=== PATIENT | male | born 1945 | race Caucasian/White ===

== ENCOUNTER 2020-12-25 07:41 | Outpatient (RCR) | payer MEDICARE, SELFPAY ==
[2020-12-25] MEDS: ACETAMINOPHEN 325 MG TABLET 650 MG PO (09:41)
[2020-12-25] MEDS: FAMOTIDINE 20 MG TABLET PO (09:42)
[2020-12-25] MEDS: diphenhydrAMINE HCl CAP 25 MG CAPSULE PO (09:42)
[2020-12-25 09:56] VITALS: BP 112/68; PULSE 85; RESP 18; TEMP 37; O2SAT 97
[2020-12-25 10:52] VITALS: BP 110/61
--- NOTE | 2020-12-28 12:50 | PC.NURSE ---
Patient states he has slightly improved since his covid infusion.
== END 2020-12-25 14:26 | disposition home or self-care (01) ==
LOC: AMCINF 07:41
PROVIDERS: PCP Family Medicine; Referring Provider Family Medicine; Visit Provider Internal Medicine Hematology & Oncology
DX: Z23 Encounter for immunization (principal); U07.1 COVID-19
CPT/HCPCS: A9270; J7050; M0243; Q0243

== ENCOUNTER 2020-12-31 08:52 | Emergency (ER) | payer MEDICARE, SELFPAY ==
[2020-12-31] VITALS (13 sets, daily range): BP systolic 135–170; BP diastolic 85–119; PULSE 68–94; RESP 10–19; TEMP 36.3–36.6; O2SAT 96–99
--- NOTE | ~2020-12-31 | XR_ITS ---
EXAMINATION: XR shoulder RT min 2V DATE: 12/31/2020 09:21 INDICATION: Right shoulder dislocation. TECHNIQUE: 3 views of right shoulder were obtained. COMPARISON: Right shoulder radiographs 12/26/2018 FINDINGS: Bone alignment is normal. No fracture. There is mild osteoarthritis of glenohumeral joint a nd severe osteoarthritis of acromioclavicular joint. There are patchy airspace opacities in right mid and lower lung zones. IMPRESSION: 1. Polyarticular osteoarthritis. 2. Patchy airspace opacities in right mid and lower lung zones, consistent with pneumonia. Reviewed, dictated and finalized at location A.
--- NOTE | 2020-12-31 09:26 | PC.NURSE ---
Pt states that he woke up and stretched which caused him to dislocate his shoulder, he appeared with deformity with pale/ cold fingers, pt states that he has dislocated his right shoulder twice in the past, pt placed in sling,pt states his pain is 1/10, pt hand and fingers has warmed up and gained normal skin color, pt states his hand feels normal again, cap refill less than 3 sec, pulses normal bilaterally
--- NOTE | 2020-12-31 09:48 | ED.UPPEXIN ---
HPI - Extremity Injury (Upper) General Chief Complaint: Extremity Injury, Upper Stated Complaint: possible shoulder dislocation Time Seen by Provider: 12/31/20 09:05 Source: patient History of Present Illness HPI narrative: Patient presents with right shoulder pain. Patient reports a history of dislocations last location was over a year ago. Reports he was getting out of bed when he twisted his shoulder and felt a pop out. He noted paresthesias and cold extremities so he came to the ER for evaluation. Denies falling down or striking his head. His pain is constant, achy, worse with moving his right upper extremity, no radiation. Related Data Allergies Allergy/AdvReac Type Severity Reaction Status Date / Time No Known Allergies Allergy Unknown Unverified 12/26/18 09:55 Review of Systems Review of Systems: CONSTITUTIONAL: Denies fever, chills, or sweats. EYES: Denies visual changes, redness, or discharge. ENT: Denies rhinorrhea, congestion, sore throat, or otalgia. CARDIOVASCULAR: Denies chest pain, palpitations, or edema. RESPIRATORY: Denies cough or dyspnea. GASTROINTESTINAL: Denies abdominal pain, nausea, vomiting, or diarrhea. GENITOURINARY: Denies dysuria or hematuria. SKIN: Denies rash or itching. MUSCULOSKELETAL: Denies back pain, joint pain, or myalgia. NEUROLOGIC: Denies headache, numbness, dizziness, or weakness. PSYCHIATRIC: Denies anxiety or depression. All systems reviewed & are unremarkable except as noted in HPI and below PMFSH Family History Family History Sibling Family history of malignant neoplasm Social History Social History Smoking status: Never smoker Alcohol intake: never Spiritual care concerns: No Exam Narrative: GENERAL: Well-appearing, well-nourished, and in no acute distress. HEAD: Normocephalic, atraumatic. EYES: PERRLA and EOMI. ENT: Nares clear, no rhinorrhea or epistaxis. Mucous membranes moist. NECK: Supple. No masses. No JVD EXTREMITIES: Deformity noted to the right shoulder mouth malalignment of the humerus patient in relation to the glenoid. Right distal extremity has cap refill of approximately 5 seconds and appears pale. Sensation is intact to light touch motor function is 5 out of 5 in the right hand SKIN: Warm, dry, no rash. NEURO: No focal deficits. Alert and oriented x3. PSYCH: Normal mood and affect. Course Reevaluation(s) Reevaluation #1: Patient reports feeling much improved plain films are reassuring patient is comfortable following up as an outpatient with his orthopedic surgeon. Date: 12/31/20 Time: 09:51 Vital Signs Vital signs: Vital Signs Temperature 36.3 C L 12/31/20 09:00 Pulse Rate 76 12/31/20 09:00 Respiratory Rate 19 12/31/20 09:00 Blood Pressure 135/105 H 12/31/20 09:00 Pulse Oximetry 98 12/31/20 09:00 Temperature 36.6 C 12/31/20 10:22 Pulse Rate 71 12/31/20 10:22 Respiratory Rate 18 12/31/20 10:22 Blood Pressure 140/86 12/31/20 10:22 Pulse Oximetry 97 12/31/20 10:22 Procedures Orthopedic Joint Reduction Joint #1: Orthopedic Joint Reduction Date: 12/31/20 Orthopedic Joint Reduction Time: 09:03 Time Out Performed: No Side: right Joint Reduction Location: shoulder Analgesia: none Pre-Procedure Neuro Vascular Exam: abnormal (Pale hand with paresthesias) Local Anesthesia: none Technique used: direct manipulation Post-reduction neuro exam: intact Post-reduction vascular: intact Post Reduction X-Ray Obtained: Yes Post Reduction X-Ray Results: reduced Splint Applied: Yes (Shoulder sling) Patient Tolerated Procedure: well and no complications MDM - Extremity Injury (Upper) MDM Narrative Medical decision making narrative: H&P as above, vss, pt looks clinically well, exam with pale hand and paresthesias as well as d
== END 2020-12-31 10:32 | disposition home or self-care (01) ==
PROVIDERS: Emergency Provider Emergency Medicine; PCP Family Medicine
DX: S43.004A Unspecified dislocation of right shoulder joint, initial encounter (principal); M19.011 Primary osteoarthritis, right shoulder; R91.8 Other nonspecific abnormal finding of lung field; Z86.16 Personal history of COVID-19; X50.9XXA Other and unspecified overexertion or strenuous movements or postures, initial encounter
CPT/HCPCS: 23650; 73030; 99285

== ENCOUNTER 2021-01-12 10:20 | Outpatient (CLI) | payer MEDICARE, SELFPAY ==
--- NOTE | ~2021-01-12 | MR_ITS ---
EXAMINATION: MR shoulder RT wo con DATE: 01/12/2021 11:28 INDICATION: Right shoulder dislocation TECHNIQUE: Magnetic resonance imaging (MRI) of the right shoulder was performed without intravenous c ontrast. Sequences included axial PD-weighted FS FSE, coronal oblique PD-weighted FS FSE, coronal obl ique T2-weighted FS FSE, sagittal PD-weighted FS FSE, and sagittal T1-weighted SE. COMPARISON: None. FINDINGS: Coracoacromial arch: The acromion undersurface is curved in morphology (type II). The coracoacromial ligament is normal. M oderate acromioclavicular osteoarthritis. Rotator cuff: Mild supraspinatus and infraspinatus tendinopathy. There is a small full-thickness tear within a few millimeter of the distal insertion of the conjoined portion of the supraspinatus and infraspinatus te ndons which measures 5 mm AP and 7 mm medial to lateral. The tear extends additional 7 mm posteriorly as a partial thickness articular sided tear involving no greater than one third of the tendon thickn ess. This occurs along side the margins of the small Hill-Sachs fracture trough. The teres minor tend on is normal. There is a small partial-thickness tear along the lateral rim of the lesser tuberosity insertion of the subscapularis tendon. Split tear between the portion of the tendon attached to the l biju tuberosity and the more superficial portion of the tendon contiguous with the transverse nellie l ligament which propagates an additional 8 mm medially. Portion of the long head biceps tendon is cotter bluxed into the split tear defect. No asymmetric atrophy of the rotator cuff musculature. There is mi ld increased fluid signal in the teres minor muscle and posterior aspect of the deltoid muscle which could be related to either muscle strain in the setting of trauma, acute denervation change or nonspe cific myositis. Biceps tendon, glenoid labrum and glenohumeral cartilage: Mild tendinopathy of the long head biceps tendon and longitudinal split tear beginning at the level o f the intertubercular groove and extending to the intra-articular portion of the tendon. The split te ar runs along the rim of the intertubercular groove with portions of the tendon remaining in the groo ve and a similar diameter portion of the tendon subluxed into the subscapularis tendon tear defect. T here is a linear tear beginning at the 3:00 position of the glenoid labrum and extending inferiorly a nd posteriorly to the 7:00 position. There is however no evident separation of the labrum from the gl enoid. There is an additional small tear at the base of the 11:00 position of the posterior superior glenoid labrum. There is mild chondral swelling along the inferior glenoid. Small region of chondral ulceration along the inferomedial aspect of the humeral head without degenerative subchondral changes . Fluid: Physiologic amount of fluid in the glenohumeral joint and biceps tendon sheath. No loose osteochondra l bodies. Small amount of fluid in the subacromial/subdeltoid bursa likely decompressing from the allie nt space through the full-thickness rotator cuff tear defect. Bones: There is mild marrow edema underlying a shallow Hill-Sachs fracture trough at the posterosuperior gle noid less than would be expected for a fracture occurring 10 days prior suspect this represents a rec urrent contusion superimposed over a more chronic fracture. Otherwise normal marrow signal. No other fractures or pathologic marrow replacing process. IMPRESSION: 1. Shallow Hill-Sachs fracture trough along the posterior superolateral aspect of the right humeral h ead with relatively mild underlying marrow edema suggesting a subacute contusion related to a recurre nt dislocation superimposed over a likely more chronic fracture. Correlate for clinical history of pr evious chronic dislocations. 2. Small full-thickness and mild articular sided tears at the conjoined supras
== END 2021-01-12 10:21 | disposition home or self-care (01) ==
PROVIDERS: PCP Family Medicine; Visit Provider Orthopaedic Surgery
DX: S43.004A Unspecified dislocation of right shoulder joint, initial encounter (principal); S42.391A Other fracture of shaft of right humerus, initial encounter for closed fracture; M24.811 Other specific joint derangements of right shoulder, not elsewhere classified
CPT/HCPCS: 73221

== ENCOUNTER 2023-02-17 00:32 | Day surgery (SDC) | payer MEDICARE, SELFPAY ==
[2023-02-16 15:38] VITALS: BMI 28.4
[2023-02-17] VITALS (18 sets, daily range): BP systolic 84–120; BP diastolic 54–85; PULSE 48–69; RESP 12–18; TEMP 36.8; O2SAT 96–100; BMI 28.8
--- NOTE | 2023-02-17 07:30 | ECG_ITS ---
Measurements Intervals [place] Rate: 46 P: 3 NE: 219 QRS: 44 QRSD: 86 T: 48 QT: 431 QTc: 379 Interpretive Statements SINUS BRADYCARDIA WITH FIRST DEGREE AV BLOCK WITH OCCASIONAL SUPRAVENTRICULAR PREMATURE COMPLEXES ABNORMAL ECG COMPARED TO ECG 02/17/2023 07:39:37 SINUS RHYTHM REPLACES ATRIAL FLUTTER Electronically Signed On 02-17-2023 10:45:12 DANCE INSTRUCTOR by Quoc Hernandez M.D.
[2023-02-17 07:59] LABS: Hemoglobin 15.2 g/dL (14.0-18.0); Mean Corpuscular HGB Conc 32.3 g/dl (32-36); Mean Corpuscular Hemoglobin 29.7 pg (26-34); Mean Platelet Volume 9.1 fl (7.4-10.4); Platelet Count Result 264 k/mm3 (150-375); Red Blood Count 5.11 M/mm3 (4.6-6.20); Red Cell Distribution Width 13.5 % (11.5-14.5)
[2023-02-17] MEDS: SODIUM CHLORIDE 0.9% IV 1,000 ML 30 ML IV CONT (08:10)
[2023-02-17 08:13] LABS: Magnesium 2.1 mg/dL (1.6-2.3)
[2023-02-17 08:13] LABS: Alanine Aminotransferase 19 U/L (6-50); Albumin Level 4.2 g/dL (3.5-5.1); Alkaline Phosphatase 68 U/L (38-126); Anion Gap 6 mmol/L (8-16); Aspartate Amino Transferase 21 U/L (17-59); Bilirubin,Total 1.5 mg/dL (0.2-1.3); Blood Urea Nitrogen 25 mg/dL (9-20); Calcium 9.7 mg/dL (8.4-10.2); Carbon Dioxide 22 mmol/L (22-30); Chloride 110 mmol/L (98-107); Estimated CRCL calculation 46 ml/min; Estimated Glomerular Filt Rate 59; Glucose 121 mg/dL (65-110); Potassium 4.5 mmol/L (3.4-5.0); Sodium 138 mmol/L (137-145)
--- NOTE | 2023-02-17 08:22 | WPDMODSED ---
Moderate Sedation Note-Pt Data Patient Data Diagnosis: Atrial flutter Present Complaint: No complaints this morning Procedure to be performed/Plan: DC cardioversion Allergies Allergy/AdvReac Type Severity Reaction Status Date / Time No Known Allergies Allergy Unknown Verified 02/17/23 07:40 Home Medications Medication Instructions Recorded Confirmed Type glucosamine-chondroitin 500 mg-400 1 tablet PO BID 04/28/22 02/16/23 History mg tablet [id number] 250 mg-dha 90 1 cap PO DAILY 04/28/22 02/16/23 History mg-epa 160 [id number]-[id number] capsule (Ocuvite Adult 50 Plus) atorvastatin 40 mg tablet 40 mg PO DAILY #90 tabs 11/03/22 02/17/23 Rx lisinopril 20 mg tablet 20 mg PO DAILY #90 tabs 11/03/22 02/16/23 Rx sildenafil 100 mg tablet 100 mg PO DAILY PRN sexual 11/03/22 02/16/23 Rx activity #18 tabs apixaban 5 mg tablet (Eliquis) 5 mg PO BID 02/16/23 02/17/23 History metoprolol succinate 100 mg 100 mg PO DAILY 02/16/23 02/16/23 History tablet,extended release 24 hr Current Medications: Active Medications Sodium Chloride (Normal Saline Iv) 1,000 mls @ 30 mls/hr IV CONT .Q24H FAHEEM Sedation/Anesthesia: No previous sedation/anesthesia problems (including family history). [facility] Past Medical History Medical History (Updated 11/03/22 @ 13:43 by German Carrero MD) Chronic kidney disease, stage 2 (mild) Complete tear of right rotator cuff Elevated prostate specific antigen [PSA] Hyperlipidemia, unspecified Hypertensive chronic kidney disease with stage 1 through stage 4 chronic kidney disease, or unspecified chronic kidney disease Left shoulder tendonitis Male erectile dysfunction, unspecified Prediabetes Surgical History Surgical History History of eye surgery (~11/2020) Repair Detached Retina History of Mohs micrographic surgery for skin cancer 08/2016 Family History Family History (Updated 10/27/22 @ 13:41 by JEANNETTE Farias) Sibling Family history of malignant neoplasm Father Acute myocardial infarction Mother Hypertension Heart disease Grandparent Acute myocardial infarction Social History Social History Smoking status: Never smoker Second hand tobacco smoke exposure: No Alcohol intake: never Substance use: never Substance use type: does not use Lack of Transportation: No Lack of Food: Never True Current Housing: I Have Housing Concerned About Future Housing: No Difficulty Paying Gas/Electric Bills: No Difficulty Paying for Meds: No Currently Unemployed: YES Difficulty w/ Childcare or Family Care: No Living arrangements: with family Occupation/Education: retired Gender identity (if verbalized by the patient): Male Sexual Orientation (if Verbalized by the Patient): Straight or Heterosexual Spiritual care concerns: No Mod Sed Physical Exam Physical Exam Pre Procedural Exam: Normal: Appearance, Neck, Throat, Airway, Lungs, Heart Size, Neuro Exam and Extremities and Variation: Heart Rate and Heart Rhythm (Irregularly irregular) Hours since solid foods: 12 Hours since liquid intake: 12 Mallampati Classification: class II Internal Medicine - PN: Obj Da Vital Signs Vital Signs: Vital Signs - 24 hr 02/17/23 08:00 Temperature 36.8 C Pulse Rate 69 Respiratory Rate 18 Blood Pressure 120/85 Pulse Oximetry 97 Oxygen Delivery Room Air Meds/Results Medications: Active Medications Generic Name Dose Route Start Last Admin Trade Name Freq PRN Reason Stop Dose Admin Sodium Chloride 1,000 mls @ 30 mls/hr 02/17/23 07:30 Normal Saline Iv IV CONT .Q24H FAHEEM Labs 02/17/23 07:44 02/17/23 07:44 Labs: Laboratory Results - last 24 hr 02/17/23 02/17/23 07:44 07:50 WBC 6.0 RBC 5.11 Hgb 15.2 Hct 47.0 MCV 92.0 MCH 29
--- NOTE | 2023-02-17 08:23 | PM.IMHP ---
H&P: HPI History of Present Illness Date/Time: 02/17/23 08:23 Chief Complaint: No complaint Narrative: This is a 77-year-old man who is admitted to the hospital as an outpatient today for attempt at electrical cardioversion of atrial flutter. He has been followed in my office since 2018 when he was referred by the PCP because of the clinical diagnosis of atrial fibrillation. At the time of his initial referral he appeared to have a multifocal atrial rhythm/not main atrial fibrillation. I simply saw him in the office periodically for follow-up and he was doing well. His evaluation with ECHO showed mild to moderate mitral valve regurgitation so we recommended see him periodically. During a routinely scheduled office appointment in January of 2023 he was found to be in atrial flutter with rapid ventricular response. Despite the rapid ventricular response he was minimally if at all symptomatic. He was started on metoprolol and apixaban. The metoprolol provided very good rate control and he essentially became asymptomatic. Following conversation regarding rate control versus rhythm control strategy he expressed a preference for an attempt at restoring sinus rhythm. He is admitted today for that attempt. Review of Systems Constitutional: Constitutional: Reports no additional constitutional complaints Eyes: Eyes: Reports no additional eye complaints ENT: Reports system reviewed and no additional complaints, except as documented Cardiovascular: Cardiovascular: Reports no additional cardiovascular complaints Respiratory: Respiratory: Reports no additional respiratory complaints Gastrointestinal: Gastrointestinal: Reports no additional gastrointestinal complaints Musculoskeletal: Musculoskeletal: Reports no additional musculoskeletal complaints Integumentary/Breasts: Skin/Breast: Reports system reviewed and no additional complaints, except as docu Neurologic: Reports system reviewed and no additional complaints, except as documented [facility] Past Medical History Medical History (Updated 02/17/23 @ 08:28 by Quoc Hernandez MD) Chronic kidney disease, stage 2 (mild) Complete tear of right rotator cuff Elevated prostate specific antigen [PSA] Hyperlipidemia, unspecified Hypertensive chronic kidney disease with stage 1 through stage 4 chronic kidney disease, or unspecified chronic kidney disease Left shoulder tendonitis Male erectile dysfunction, unspecified Prediabetes Surgical History Surgical History History of eye surgery (~11/2020) Repair Detached Retina History of Mohs micrographic surgery for skin cancer 08/2016 Family History Family History (Updated 10/27/22 @ 13:41 by JEANNETTE Farias) Sibling Family history of malignant neoplasm Father Acute myocardial infarction Mother Hypertension Heart disease Grandparent Acute myocardial infarction Social History Social History Smoking status: Never smoker Second hand tobacco smoke exposure: No Alcohol intake: never Substance use: never Substance use type: does not use Lack of Transportation: No Lack of Food: Never True Current Housing: I Have Housing Concerned About Future Housing: No Difficulty Paying Gas/Electric Bills: No Difficulty Paying for Meds: No Currently Unemployed: YES Difficulty w/ Childcare or Family Care: No Living arrangements: with family Occupation/Education: retired Gender identity (if verbalized by the patient): Male Sexual Orientation (if Verbalized by the Patient): Straight or Heterosexual Spiritual care concerns: No Meds Home Medications and Allergies Home Medications Medication Instructions Recorded Confirmed Type glucosamine-chondroitin 500 mg-400 1 tablet PO BID 04/28/22 02/16/23 History mg tablet [id number] 250 mg-dha 90 1
--- NOTE | 2023-02-17 08:34 | P.PCNCC_ITS ---
Cardiac Cath Procedure Note Date of procedure:: 02/17/23 Performing physician:: Quoc Hernandez MD Indication:: Persistent atrial flutter Brief clinical history:: This is a 77-year-old man with a history of atrial ectopic activity was noted as an outpatient recently to have lapsed into atrial flutter. Rate control has been provided with metoprolol and anticoagulation with apixaban. An apt tempted restoring sinus rhythm electrically has been recommended. Procedure Procedure performed:: DC cardioversion Sedation/Medication given:: Intravenous propofol 40 mg Estimated blood loss:: 0 Procedure note:: Patient was brought to the cardiac catheterization lab holding area in the postabsorptive state. Defibrillator patches were placed in the AP position. Defibrillator was synchronized at 200 joules. Following delivery of propofol excellent sedation was achieved very quickly. He was counter shocked with 200 joules x1 shock which restored sinus rhythm/sinus bradycardia. Findings:: As above Conclusion:: Successful uncomplicated DC cardioversion of atrial flutter restoring sinus rh ythm using 200 joules x1 attempt Qouc Hernandez MD [facility] Assessment and Plan Assessment and plan (1) Atrial flutter by electrocardiogram: Code(s): I48.92 - Unspecified atrial flutter Status: Acute
--- NOTE | 2023-02-17 09:30 | ECG_ITS ---
Measurements Intervals [place] Rate: 61 P: MT: 0 QRS: 20 QRSD: 94 T: 11 QT: 403 QTc: 409 Interpretive Statements ATRIAL FLUTTER/TACHYCARDIA WITH SLOW VENTRICULAR RESPONSE ABNORMAL RHYTHM ECG NO PREVIOUS ECG AVAILABLE FOR COMPARISON Electronically Signed On 02-17-2023 10:43:54 ORGANIZATIONAL PSYCHOLOGIST by Quoc Hernandez M.D.
== END 2023-02-17 10:30 | disposition home or self-care (01) ==
PROVIDERS: PCP Family Medicine; Visit Provider Specialist
PROC: 5A2204Z Restoration of Cardiac Rhythm, Single (ICD-10-PCS; principal; 2023-02-17 09:00)
DX: I48.92 Unspecified atrial flutter (principal); I12.9 Hypertensive chronic kidney disease with stage 1 through stage 4 chronic kidney disease, or unspecified chronic kidney disease; N18.2 Chronic kidney disease, stage 2 (mild); E78.5 Hyperlipidemia, unspecified; R73.03 Prediabetes; Z79.01 Long term (current) use of anticoagulants
CPT/HCPCS: 36415; 80053; 83735; 85027; 92960; J2704; J7030